=== PATIENT | female | born 1980 | race Caucasian/White ===

== ENCOUNTER 2016-12-28 00:03 | Emergency (ER) | payer SELFPAY ==
[~2016-12-28] VITALS: Ht 167.6 cm; Wt 104.3 kg
[2016-12-28] MEDS ORDERED: IV NORMAL SALINE 1000ML BAG 1,000 ML IV ONE (00:30)
[2016-12-28 00:33] LABS: BASO # 0.1 x10^3/uL (0.0-0.2); BASO % 1 % (0-3); EOS % 5 % (0-3); HEMATOCRIT 38.5 % (36.0-47.0); HEMOGLOBIN 13.3 g/dL (12.0-15.5); LYMPH # 3.6 x10^3/uL (1.0-4.8); LYMPH % 45 % (24-48); MEAN CORPUSCULAR HEMOGLOBIN 34 pg (25-35); MEAN CORPUSCULAR HGB CONC 34 g/dL (31-37); MEAN CORPUSCULAR VOLUME 98 fL (79-100); MONO % 11 % (0-9); NEUT % 39 % (31-73); PLATELET COUNT 288 x10^3/uL (140-400); RED BLOOD COUNT 3.93 x10^6/uL (3.50-5.40); RED CELL DISTRIBUTION WIDTH 12.7 % (11.5-14.5); WHITE BLOOD COUNT 8.1 x10^3/uL (4.0-11.0)
[2016-12-28 00:39] LABS: PARTIAL THROMBOPLASTIN TIME 28 SEC (24-38); PROTHROMBIN TIME PATIENT 12.5 SEC (11.7-14.0)
[2016-12-28 00:43] LABS: CALCIUM 8.9 mg/dL (8.5-10.1); CREATININE 0.7 mg/dL (0.6-1.0); GFR 94.7; POTASSIUM 3.2 mmol/L (3.5-5.1)
[2016-12-28] MEDS ORDERED: LIDO:MAALOX:DONNATAL 1:1:1 15 ML SINGLE DOSE SWSW ONE (00:45)
[2016-12-28] MEDS ORDERED: ONDANSETRON PF 4 MG/2 ML VIAL. IV ONE (00:45)
[2016-12-28] MEDS ORDERED: IPRATRPIUM/ALBUTEROL 0.5/2.5MG 3 ML NEBU. NEB ONE (00:45)
[2016-12-28] MEDS ORDERED: ASPIRIN ENTERIC COATED 325 MG TABLET.DR. PO ONE (00:45)
[2016-12-28 00:50] LABS: ALBUMIN 4.1 g/dL (3.4-5.0); ALBUMIN/GLOBULIN RATIO 1.2 (1.0-1.7); MAGNESIUM 2.2 mg/dL (1.8-2.4); TOTAL BILIRUBIN 0.7 mg/dL (0.2-1.0); TOTAL PROTEIN 7.4 g/dL (6.4-8.2)
[2016-12-28 00:58] LABS: BILIRUBIN,URINE NEGATIVE (NEG); GLUCOSE,URINE NEGATIVE (NEG); NITRITE,URINE NEGATIVE (NEG); PROTEIN,URINE NEGATIVE (NEG-TRACE); UROBILINOGEN,URINE 0.2 mg/dL (0.2 mg/dL)
[2016-12-28] MEDS ORDERED: POTASSIUM CHLORIDE 20 MEQ TABLET.ER. PO ONE (01:00)
[2016-12-28 01:05] LABS: BARBITURATES NEG (NEG); BENZODIAZEPINES NEG (NEG); CANNABINOIDS POS (NEG); COCAINE NEG (NEG); METHADONE NEG (NEG); OPIATES NEG (NEG); PHENCYCLIDINE NEG (NEG)
[2016-12-28 01:06] LABS: BACTERIA,URINE FEW /HPF (0-FEW); SQUAMOUS EPITHELIAL CELL,UR MOD /LPF; WBC,URINE OCC /HPF (0-4)
--- NOTE | 2016-12-28 01:15 | PHYS DOC ---
Past Medical History Past Medical History: Anxiety Past Surgical History: No Surgical History Alcohol Use: None Drug Use: Marijuana Social History Narrative: Reports smoking marijuana today. Adult General Chief Complaint Chief Complaint: CHEST PAIN HPI HPI Patient is a 36 year old female presenting to the emergency department for evaluation of chest pain shortness of breath that started approximately 10 PM after she got off work. She says it feels tight in the center of her chest and then she also has sharp pain in the center of her chest that radiates towards her back. Patient says that she is feeling shaky. Patient reports having similar symptoms of this in the past and she had a normal stress test done. She said she tried Pepcid with no relief she had nausea but no vomiting. She is in no obvious distress but she is tachycardic. She seems fixated on her heart rate as she keeps asking about it and she says she was checking it and it was in the 160s. Review of Systems Review of Systems Constitutional: Denies fever or chills [] Eyes: Denies change in visual acuity, redness, or eye pain [] HENT: Denies nasal congestion or sore throat [] Respiratory: Denies cough. + shortness of breath [] Cardiovascular: + CP GI: Denies abdominal pain, nausea, vomiting, bloody stools or diarrhea [] : Denies dysuria or hematuria [] Musculoskeletal: Denies back pain or joint pain [] Integument: Denies rash or skin lesions [] Neurologic: Denies headache, focal weakness or sensory changes [] Current Medications Current Medications Current Medications Medications (Trade) Dose Ordered Sig/Ruth Start Time Stop Time Status Last Admin Dose Admin Albuterol/ Ipratropium (Duoneb) 3 ml 1X ONCE 12/28/16 00:45 12/28/16 00:46 DC Aspirin (Ecotrin) 325 mg 1X ONCE 12/28/16 00:45 12/28/16 00:46 DC 12/28/16 00:44 325 MG Lorazepam (Ativan) 1 mg 1X ONCE 12/28/16 00:45 12/28/16 00:46 DC Multi-Ingredient Mouthwash/Gargle (Gi Cocktail Single Dose) 15 ml 1X ONCE 12/28/16 00:45 12/28/16 00:46 DC 12/28/16 00:44 15 ML Ondansetron HCl (Zofran) 4 mg 1X ONCE 12/28/16 00:45 12/28/16 00:46 DC 12/28/16 00:44 4 MG Potassium Chloride (Klor-Con) 40 meq 1X ONCE 12/28/16 01:00 12/28/16 01:01 DC 12/28/16 01:15 40 MEQ Sodium Chloride 1,000 ml @ 1,000 mls/hr 1X ONCE 12/28/16 00:30 12/28/16 01:29 12/28/16 00:44 1,000 MLS/HR Allergies Allergies Allergies Coded Allergies Type Severity Reaction Last Updated Verified No Known Drug Allergies 12/28/16 No Physical Exam Physical Exam Constitutional: Anxious and shaking her whole body. HENT: Normocephalic, atraumatic, bilateral external ears normal, oropharynx moist, no oral exudates, nose normal. [] Eyes: PERRLA, EOMI, conjunctiva normal, no discharge. [] Neck: Normal range of motion, no tenderness, supple, no stridor. [] Cardiovascular:Heart rate tachycardic with regular rhythm, no murmur [] Lungs & Thorax: Bilateral breath sounds clear to auscultation [] Abdomen: Bowel sounds normal, soft, no tenderness, no masses, no pulsatile masses. [] Skin: Warm, dry, no erythema, no rash. [] Back: No tenderness, no CVA tenderness. [] Extremities: No tenderness, no cyanosis, no clubbing, ROM intact, no edema. [] Neurologic: Alert and oriented X 3, normal motor function, normal sensory function, no focal deficits noted. [] Current Patient Data Vital Signs Vital Signs Date Time Temp Pulse Resp B/P (MAP) Pulse Ox O2 Delivery O2 Flow Rate FiO2 12/28/16 00:08 98.3 116 20 151/95 (113) 98 Room Air 98.3 Lab Values Laboratory Tests Test 12/28/16 00:14 12/28/16 00:40 White Blood Count 8.1 x10^3/uL (4.0-11.0) Red Blood Count 3.93 x10^6/uL (3.50-5.40) Hemoglobin 13.3 g/dL (12.0-15.5) Hematocrit 38.5 % (36.0-47.0) Mean Corpuscular Volume 98 fL (79-100) Mean Corpuscular Hemoglobin 34 pg (25-35) Mean Corpuscular Hemoglobin Concent 34 g/dL (31-37) Red Cell Distribution Width 12.7 % (11.5-14.5) Platelet Count 288 x10^3/uL (140-400) Neutrophils (%) (Auto) 39 % (31-73) Lymphocytes (%) (Auto) 45 % (24-48) Monocytes (%) (Auto) 11 % (0-9) H Eosinophils (%) (Auto) 5 % (0-3) H Basophils (%) (Auto) 1 % (0-3) Neutrophils # (Auto) 3.1 x10^3uL (1.8-7.7) Lymphocytes # (Auto) 3.6 x10^3/uL (1.0-4.8) Monocytes # (Auto) 0.9 x10^3/uL (0.0-1.1) Eosinophils # (Auto) 0.4 x10^3/uL (0.0-0.7) Basophils # (Auto) 0.1 x10^3/uL (0.0-0.2) Prothrombin Time 12.5 SEC (11.7-14.0) Prothrombin Time INR 1.0 (0.8-1.1) PTT 28 SEC (24-38) D-Dimer (Melodie) < 0.27 ug/mlFEU Sodium Level 142 mmol/L (136-145) Potassium Level 3.2 mmol/L (3.5-5.1) L Chloride Level 106 mmol/L (98-107) Carbon Dioxide Level 26 mmol/L (21-32) Anion Gap 10 (6-14) Blood Urea Nitrogen 9 mg/dL (7-20) Creatinine 0.7 mg/dL (0.6-1.0) Estimated GFR (Cockcroft-Gault) 94.7 BUN/Creatinine Ratio 13 (6-20) Glucose Level 126 mg/dL (70-99) H Calcium Level 8.9 mg/dL (8.5-10.1) Magnesium Level 2.2 mg/dL (1.8-2.4) Total Bilirubin 0.7 mg/dL (0.2-1.0) Aspartate Amino Transferase (AST) 16 U/L (15-37) Alanine Aminotransferase (ALT) 17 U/L (14-59) Alkaline Phosphatase 70 U/L (46-116) Creatine Kinase 121 U/L (26-192) Troponin I Quantitative < 0.017 ng/mL (0.000-0.055) YD-Jmo-L-Type Natriuretic Peptide 29 pg/mL (0-124) Total Protein 7.4 g/dL (6.4-8.2) Albumin 4.1 g/dL (3.4-5.0) Albumin/Globulin Ratio 1.2 (1.0-1.7) Lipase 160 U/L (73-393) Thyroid Stimulating Hormone (TSH) 2.448 uIU/mL (0.358-3.74) Ethyl Alcohol Level < 10 mg/dL (0-10) Urine Collection Type Unknown Urine Color Yellow Urine Clarity Cloudy Urine pH 6.0 Urine Specific [place] <=1.005 Urine Protein Negative mg/dL (NEG-TRACE) Urine Glucose (UA) Negative mg/dL (NEG) Urine Ketones (Stick) Negative mg/dL (NEG) Urine Blood Trace (NEG) Urine Nitrite Negative (NEG) Urine Bilirubin Negative (NEG) Urine Urobilinogen Dipstick 0.2 mg/dL (0.2 mg/dL) Urine Leukocyte Esterase Negative (NEG) Urine RBC 1-2 /HPF (0-2) Urine WBC Occ /HPF (0-4) Urine Squamous Epithelial Cells Mod /LPF Urine Bacteria Few /HPF (0-FEW) Urine Opiates Screen Neg (NEG) Urine Methadone Screen Neg (NEG) Urine Barbiturates Neg (NEG) Urine Phencyclidine Screen Neg (NEG) Urine Amphetamine/Methamphetamine Neg (NEG) Urine Benzodiazepines Screen Neg (NEG) Urine Cocaine Screen Neg (NEG) Urine Cannabinoids Screen Pos (NEG) Urine Ethyl Alcohol Neg (NEG) Laboratory Tests 12/28/16 00:14 Laboratory Tests 12/28/16 00:14 EKG EKG Sinus tachycardia at 113 bpm with normal axis no obvious ST elevation or depression and normal T waves. Radiology/Procedures Radiology/Procedures Normal mediastinum borderline cardiomegaly with no obvious free air pneumothorax or opacity. Course & Med Decision Making Course & Med Decision Making Patient looks like she is having an anxiety attack so she was given Ativan and addition to other supportive medications. Rate is now in the 80s and her blood pressure is normal as well. Patient's workup is completely normal and she appears well with normal vital signs. Patient says that her pain and anxiety is almost gone and she is feeling better and wants to go home. I recommended that she stay for repeat troponin and EKG given she is not 6 hours out from the onset of symptoms. Patient refused stating that she wants to go home and she would follow with a primary care provider as an outpatient. She verbalized understanding of why I wanted to repeat the tests including the limitations of the test here and that the troponin enzymes can come back abnormal later. She verbalized understanding and accepted the risks of and disability by leaving prior to workup being completed. Patient says that she will come back with any new or worsening symptoms. Patient aware and agreeable with plan for discharge and verbalized understanding of the above instructions. Dragon Disclaimer Dragon Disclaimer This electronic medical record was generated, in whole or in part, using a voice recognition dictation system. Departure Departure Impression: Primary Impression: Chest pain Additional Impressions: Dyspnea Anxiety Disposition: 01 HOME, SELF-CARE Condition: GOOD Referrals: NON,STAFF (PCP) TIM CHAVIS MD Patient Instructions: Anxiety and Panic Attacks Additional Instructions: If you have reflux symptoms Tums and Maalox work the fastest. You can also take Pepcid and Prilosec. Try and follow with a primary care provider this week to ensure improvement and come back to the ER sooner with any new worsening pain shortness of breath or other general concerns. Problem Qualifiers Primary Impression: Chest pain Chest pain type: unspecified Qualified Codes: R07.9 - Chest pain, unspecified JAVI ATKINSON DO Dec 28, 2016 01:15
[2016-12-28 01:17] VITALS: BP 117/70
--- NOTE | 2016-12-28 07:34 | RAD ---
Portable AP chest. History: Chest pain AP portable view was taken of the chest. Lungs are free of infiltrates. Heart is normal in size without heart failure. There is no effusion. Impression: 1. No acute chest disease.
--- NOTE | 2016-12-28 11:30 | EKG ---
[facility] [address] [place] [address] Test Date: 2016-12-28 Test Time: 00:08:43 Pat Name: JAGDEEP BLANCHARD Department: Room: Gender: F Map Maker: : 1980 Requested By: JAVI ATKINSON Order Number: [id number] Reading MD: Measurements Intervals Dora Rate: 113 P: 43 HI: 156 QRS: 61 QRSD: 90 T: 24 QT: 318 QTc: 442 Interpretive Statements SINUS TACHYCARDIA QRS(T) CONTOUR ABNORMALITY CONSIDER ANTEROLATERAL MYOCARDIAL DAMAGE POSSIBLY ABNORMAL ECG RI6.01 No previous ECG available for comparison
== END 2016-12-28 01:45 | disposition home or self-care (01) ==
LOC: ER 00:03
DX: R07.89 Other chest pain (principal); R06.00 Dyspnea, unspecified; F41.9 Anxiety disorder, unspecified; R00.0 Tachycardia, unspecified; F12.10 Cannabis abuse, uncomplicated
CPT/HCPCS: 36415; 71010; 80053; 80305; 81001; 82550; 83690; 83735; 83880; 84443; 84484; 85027; 85379; 85610; 85730; 93005; 96361; 96374; 99285; C1887; G0480; J2405; J7030; G0481